=== PATIENT | female | born 1995 | race Caucasian/White ===

== ENCOUNTER 2017-01-20 18:45 | Observation (INO) | payer OTHER ==
[~2017-01-20] VITALS: Ht 166 cm; Wt 88.9 kg
[2017-01-20 19:13] VITALS: BP 122/59
[2017-01-20 19:42] VITALS: BP 119/74
[2017-01-20] MEDS ORDERED: FentaNYL/BUPIV 0.125%/NS/PF 200 ML ED PRN (19:46)
[2017-01-20] MEDS ORDERED: NALBUPHINE HCL 10 MG/ML VIAL IVP PRN (20:00)
[2017-01-20] MEDS ORDERED: DiphenhydrAMINE HCL 50 MG/ML VIAL IVP PRN (20:00)
[2017-01-20] MEDS ORDERED: PROMETHAZINE HCL 25 MG/ML VIAL IM PRN (20:00)
[2017-01-20] MEDS ORDERED: ONDANSETRON HCL 4 MG/2 ML VIAL IVP PRN (20:00)
[2017-01-20 21:36] LABS: BASOPHILS # (AUTO) 0.06 K/uL (0.00-0.20); BASOPHILS % (AUTO) 0.6 % (0.0-2.0); EOSINOPHILS # (AUTO) 0.03 K/uL (0.00-0.70); EOSINOPHILS % (AUTO) 0.32 % (1.0-6.0); HEMATOCRIT 36.9 % (36-46); HEMOGLOBIN 12.5 g/dL (12.0-16.0); LYMPHOCYTES # (AUTO) 1.2 K/uL (1.0-4.8); LYMPHOCYTES % (AUTO) 13.9 % (22.0-44.0); MEAN CORPUSCULAR HEMOGLOBIN 34.7 pg (26.0-34.0); MEAN CORPUSCULAR HGB CONC 33.8 G/dL (31.0-37.0); MEAN CORPUSCULAR VOLUME 103 fL (80-100); MONOCYTES # (AUTO) 0.7 K/uL (0.1-1.0); MONOCYTES % (AUTO) 7.5 % (2.0-9.0); NEUTROPHILS # (AUTO) 6.8 K/uL (1.8-7.7); NEUTROPHILS % (AUTO) 77.6 % (40.0-70.0); RED CELL DISTRIBUTION WIDTH 12.8 % (11.5-14.5); WHITE BLOOD COUNT (AUTO) 8.8 K/uL (4.5-11.0)
[2017-01-20 21:39] LABS: RBC MORPHOLOGY COMMENT ABNORMAL RBC MORPH
[2017-01-20 22:15] LABS: RUBELLA SCREEN (IGG) IMMUNE (IMMUNE)
[2017-01-20] MEDS ORDERED: LIDOCAINE HCL 2%/EPI 1:200,000/PF 10 ML VIAL ONE (22:56)
[2017-01-20] MEDS ORDERED: FentaNYL/BUPIV 0.125%/NS/PF 200 ML ED ONE (22:57)
[2017-01-21] MEDS ORDERED: PREN1TAB80 PO (03:40)
[2017-01-22] MEDS ORDERED: IBUP-2070 PO (13:44)
[2017-01-22] MEDS ORDERED: DSS100 PO (13:45)
[2017-01-22] MEDS ORDERED: FERR-89 PO (13:45)
== END 2017-01-20 23:47 | disposition home or self-care (01) ==
LOC: 4S 18:45
PROVIDERS: ADMIT Obstetrics & Gynecology; ATTEND Obstetrics & Gynecology
DX: O62.9 Abnormality of forces of labor, unspecified (principal); O48.0 Post-term pregnancy; O26.893 Other specified pregnancy related conditions, third trimester; N94.89 Other specified conditions associated with female genital organs and menstrual cycle; Z3A.40 40 weeks gestation of pregnancy
CPT/HCPCS: 36415; 59025; 80307 ×8; 85025; 86592; 86762; 86850; 86900; 86901; 87340; G0378; J3490